=== PATIENT | female | born 1940 | race Two or more races ===

== ENCOUNTER 2018-06-14 11:10 | Outpatient (CLI) | payer MEDICARE, OTHER ==
[~2018-06-14] VITALS: Ht 170.2 cm; Wt 85.3 kg
[~2018-06-14 11:10] MED LIST: ALIGN4 M1 PO; AMLODIPINE BESYL5 MG ORAL; ASPIRIN81 MG ORAL; BYSTOLIC2.5 MG ORAL; ELIQUIS2.5 MG PO; LEXAPRO20 MG ORAL; MULTAQ400 MG ORAL; REPATHA SY140 MG/1 M SQ; TOPROL XL25 MG ORAL
[2018-06-14] MEDS ORDERED: AMLODIPINE BES2.5 MG ORAL (12:29)
[2018-06-14 12:56] VITALS: BP 137/64
--- NOTE | 2018-06-22 14:44 | GI Progress Note ---
Assessment/Plan Problems: (1) Gastric spindle cell tumor (2) IBS (irritable bowel syndrome) ICD Codes: K59.9 - IBS (irritable bowel syndrome) SNOMED: 61963218 (3) A-fib ICD Codes: I48.91 - Unspecified atrial fibrillation SNOMED: 17117343 (4) HTN (hypertension) ICD Codes: I10 - HTN (hypertension) SNOMED: 41308734 (5) Anxiety ICD Codes: F41.9 - Anxiety; F48.9 - Nonpsychotic mental disorder, unspecified SNOMED: 79788741 Status: stable Status Narrative Seen with Dr. Simmons. Assessment/Plan 2015 incomplete colonoscopy up to splenic flexure. patient scheduled for colonoscopy on 06/27/18 @ [facility]. - CLD & (Nulytely/Suprep/Movi-Prep) prep instructions given and acknowledged by patient. - NPO @ ID day prior procedure explained. fu labs from PCP The patient was seen and examined at bedside and all new and available data was reviewed in the patients chart. I agree with the above findings, impression and plan. (Patient seen earlier today. Signature stamp does not reflect patient encounter time.). - Karthik Simmons MD Note this is a late entry. Subjective Gastrointestinal/Abdominal: Reports: no symptoms Objective 97.4 BP 137/64 P 59 (irregular HR) 96 RA WT 188 General Appearance: WD/WN, no apparent distress, alert Cardiovascular: normal rate Respiratory/Chest: normal breath sounds, no respiratory distress Abdominal Exam: normal bowel sounds, non tender, soft Extremities: normal range of motion, non-tender Henry Cobian [employer]IST Jun 22, 2018 14:44
== END 2018-06-14 11:43 | disposition home or self-care (01) ==
LOC: PAN 11:10
DX: K58.9 Irritable bowel syndrome, unspecified (principal); I48.91 Unspecified atrial fibrillation; I10 Essential (primary) hypertension; F41.9 Anxiety disorder, unspecified; F48.9 Nonpsychotic mental disorder, unspecified; C16.9 Malignant neoplasm of stomach, unspecified
CPT/HCPCS: 99213

== ENCOUNTER 2018-06-27 06:40 | Day surgery (SDC) | payer MEDICARE, OTHER ==
[~2018-06-27] VITALS: Ht 170.2 cm; Wt 83.5 kg
[2018-06-27] VITALS (11 sets, daily range): BP systolic 145–181; BP diastolic 66–91
[~2018-06-27 06:40] MED LIST changes: +AMLODIPINE BES2.5 MG ORAL
[2018-06-27] MEDS ORDERED: LR 1000ml ONE ×2 (06:41→09:42)
[2018-06-27] MEDS ORDERED: Midazolam 2mg/2ml Inj ONE ×2 (06:41→09:42)
[2018-06-27] MEDS ORDERED: fentaNYL 100 mcg/2 mL IV ONE ×2 (06:41→09:42)
[2018-06-27] MEDS ORDERED: Propofol 200mg/20ml IV ONE ×2 (06:41→09:42)
[2018-06-27] MEDS ORDERED: LR 1000ml 1,000 ML IVLG SCH (08:14)
--- NOTE | 2018-06-27 08:14 | Anethesia Preoperative Eval ---
Anesthesia Pre-op PMH/ROS General Date of Evaluation: Jun 27, 2018 Time of Evaluation: 08:10 Anesthesiologist: Kiera ASA Score: ASA 2 Mallampati Score Class I : Soft palate, uvula, fauces, pillars visible Class II: Soft palate, uvula, fauces visible Class III: Soft palate, base of uvula visible Class IV: Only hard plate visible Mallampati Classification: Class II Surgeon: Iris Diagnosis: Abdominal pain Surgical Procedure: EGD Colonoscopy Anesthesia History: none Allergies: Coded Allergies: AMOXICILLIN (Verified Allergy, Mild, 01/06/11) BENZOCAINE (Verified Allergy, Mild, 01/06/11) BUPIVACAINE (Verified Allergy, Mild, 01/06/11) BUTAMBEN (Verified Allergy, Mild, 01/06/11) CHLOROPROCAINE (Verified Allergy, Mild, 01/06/11) COCAINE (Verified Allergy, Mild, 01/06/11) DEXTROSE (Verified Allergy, Mild, 01/06/11) DIBUCAINE (Verified Allergy, Mild, 01/06/11) EPINEPHRINE (Verified Allergy, Mild, 01/06/11) EPINEPHRYL BORATE (Verified Allergy, Mild, 01/06/11) ETHYL CHLORIDE (Verified Allergy, Mild, 01/06/11) LIDOCAINE (Verified Allergy, Mild, 01/06/11) MEPIVACAINE (Verified Allergy, Mild, 01/06/11) PRILOCAINE (Verified Allergy, Mild, 01/06/11) PROPARACAINE (Verified Allergy, Mild, 01/06/11) TETRACAINE (Verified Allergy, Mild, 01/06/11) VALSARTAN (Verified Allergy, Mild, 01/06/11) PENICILLINS (Verified Allergy, Unknown, 04/29/16) Past Medical History Cardiovascular: Reports: HTN, arrhythmia - h/o A fib; Denies: CAD, [place], valve dz, other Pulmonary: Reports: COPD; Denies: asthma, NYA, other Gastrointestinal/Genitourinary: Denies: GERD, CRI, ESRD, other Neurologic/Psychiatric: Reports: depression/anxiety; Denies: dementia, CVA, TIA, other Endocrine: Reports: hypothyroidism; Denies: DM, steroids, other HEENT: Denies: cataract (L), cataract (R), glaucoma, [place] (L), [place] (R), other Hematology/Immune: Reports: anemia - mild; Denies: DVT, bleeding disorder, other Musculoskeletal/Integumentary: Denies: OA, RA, DJD, DDD, edema, other PMH Narrative: as above PSxH Narrative: Thyroid Anesthesia Pre-op Phys. Exam Physician Exam Last Vital Signs Date Time Temp Pulse Resp B/P (MAP) Pulse Ox O2 Delivery O2 Flow Rate FiO2 06/27/18 07:36 161/86 (111) 06/27/18 07:20 Room Air 06/27/18 07:14 98.3 69 18 98 98.3 Constitutional: NAD Neurologic: CN 2-12 intact Cardiovascular: RRR, no M/R/G Respiratory: CTA Gastrointestinal: S/NT/ND Airway Exam Mallampati Score: Class II MO: full Neck: stiff ROM: limited Teeth: missing Dentures: no upper, no lower Anesthesia Pre-op A/P Labs see chart Studies Pre-op Studies: EKG - NSR Risk Assessment & Plan Assessment: ASA 2 Plan: MAC Status Change Before Surgery: No Pre-Antibiotics Drug: none Dale Qureshi MD Jun 27, 2018 08:14
[2018-06-27] MEDS ORDERED: DiphenhydrAMINE 50mg/ml Inj IVP PRN (08:15)
[2018-06-27] MEDS ORDERED: fentaNYL 100 mcg/2 mL IV PRN (08:15)
--- NOTE | 2018-06-27 09:47 | Short Stay Surgery H&P ---
History of Present Illness History of Present Illness Chief Complaint see recent office note HPI Amalia Phelan is a 77 year old female who was admitted on for Gastric Spindle Cell Tumor Patient History Allergies: Coded Allergies: AMOXICILLIN (Verified Allergy, Mild, 01/06/11) BENZOCAINE (Verified Allergy, Mild, 01/06/11) BUPIVACAINE (Verified Allergy, Mild, 01/06/11) BUTAMBEN (Verified Allergy, Mild, 01/06/11) CHLOROPROCAINE (Verified Allergy, Mild, 01/06/11) COCAINE (Verified Allergy, Mild, 01/06/11) DEXTROSE (Verified Allergy, Mild, 01/06/11) DIBUCAINE (Verified Allergy, Mild, 01/06/11) EPINEPHRINE (Verified Allergy, Mild, 01/06/11) EPINEPHRYL BORATE (Verified Allergy, Mild, 01/06/11) ETHYL CHLORIDE (Verified Allergy, Mild, 01/06/11) LIDOCAINE (Verified Allergy, Mild, 01/06/11) MEPIVACAINE (Verified Allergy, Mild, 01/06/11) PRILOCAINE (Verified Allergy, Mild, 01/06/11) PROPARACAINE (Verified Allergy, Mild, 01/06/11) TETRACAINE (Verified Allergy, Mild, 01/06/11) VALSARTAN (Verified Allergy, Mild, 01/06/11) PENICILLINS (Verified Allergy, Unknown, 04/29/16) Medication History Scheduled Amlodipine Besylate* (Amlodipine Besylate*), 2.5 MG ORAL DAILY, (Reported) Apixaban (Eliquis), 2.5 MG PO BID, (Reported) Escitalopram Oxalate* (Lexapro*), 5 MG ORAL DAILY, (Reported) Nebivolol Hcl* (Bystolic*), 5 MG ORAL DAILY, (Reported) Miscellaneous Medications Evolocumab (Repatha Syringe), 140 MG SQ, (Reported) Discontinued Medications Dronedarone Hydrochloride (Multaq), 400 MG ORAL TWICE A DAY, (Reported) Discontinued Reason: Pt stopped taking med Physical Exam Vital Signs Last Vital Signs Date Time Temp Pulse Resp B/P (MAP) Pulse Ox O2 Delivery O2 Flow Rate FiO2 06/27/18 07:36 161/86 (111) 06/27/18 07:20 Room Air 06/27/18 07:14 98.3 69 18 98 98.3 Plan Attestation Are the patient's medical conditions optimized for surgery? Karthik Simmons MD Jun 27, 2018 09:47
--- NOTE | 2018-06-27 09:47 | Pre-Procedure Note/Attestation ---
Pre-Procedure Note/Attestation Complete Prior to Procedure Planned Procedure: not applicable Procedure Narrative: esophagogastroduodenoscopy and colonoscopy Indications for Procedure Pre-Operative Diagnosis: screening colon, GERD Attestation I attest that I discussed the nature of the procedure; its benefits; risks and complications; and alternatives (and the risks and benefits of such alternatives ), prior to the procedure, with the patient (or the patient's legal payable representative). I attest that, if there was a reasonable possibility of needing a blood transfusion, the patient (or the patient's legal payable representative) was given the [facility] standardized written summary, pursuant to the [place] Blood Safety Act ([place] Health and Safety Code # 1645, as amended). I attest that I re-evaluated the patient just prior to the surgery and that there has been no change in the patient's H&P, except as documented below: Karthik Simmons MD Jun 27, 2018 09:47
--- NOTE | 2018-06-27 10:38 | Immediate Post-Op Evaluation ---
Immediate Post-Op Evalulation Immediate Post-Op Evalulation Procedure: EGD Colonoscopy Date of Evaluation: Jun 27, 2018 Time of Evaluation: 10:37 IV Fluids: 500 Blood Products: none Estimated Blood Loss: none Urinary Output: none Blood Pressure Systolic: 176 Blood Pressure Diastolic: 68 Pulse Rate: 74 Respiratory Rate: 20 O2 Sat by Pulse Oximetry: 99 Temperature (Fahrenheit): 97.7 Pain Score (1-10): 1 Nausea: No Vomiting: No Complications none Patient Status: reacts, patent, none Hydration Status: adequate Dale Qureshi MD Jun 27, 2018 10:38
--- NOTE | 2018-06-27 11:15 | Procedure Note ---
DATE OF PROCEDURE: 06/27/2018 SURGEON: Karthik Simmons M.D. ANESTHESIOLOGIST: Dr. Qureshi. PROCEDURE: Colonoscopy with biopsy and endoscopy with biopsy. ANESTHESIA: Per Dr. Qureshi. INSTRUMENT: Olympus adult flexible upper endoscope and colonoscope. INDICATION: Screening colonoscopy evaluation, abdominal pain, chronic GERD. The procedure, risks, benefits, and possible consequences, including hemorrhage, aspiration, perforation and infection, and alternative treatments, were explained to the patient/legal guardian by Dr. Karthik Simmons and the patient/legal guardian understood and accepted these risks. DESCRIPTION OF PROCEDURE: After informed consent was obtained and the patient was adequately sedated, Olympus upper endoscope was advanced from the mouth to the second portion of the duodenum and retroflexion was performed in the stomach. GE junction was found to be about 40 cm from the incisors. No evidence of any esophagitis. No esophageal mass. In the stomach, there was diffuse gastritis, mildly atrophic. There were also multiple antral erosions. Random biopsy from the antrum and body was obtained to rule out H. pylori infection. The rest of the upper endoscopic examination grossly looked within normal limits. At this time, the upper endoscope was retrieved. The patient was turned over for colonoscopy. First, rectal exam was performed which showed positive for external hemorrhoids. Then, the scope was advanced from rectum into the cecum documented by appendiceal orifice, ileocecal valve, and right upper quadrant palpation. Quality of prep was very good. The patient had very tortuous and difficult colonoscopy examination. She had one diminutive polyp in the transverse colon removed with the cold biopsy forceps technique. Retroflexion of rectum showed no obvious large internal hemorrhoids. SUMMARY OF FINDINGS: 1. Gastritis, status post biopsy. 2. Antral erosions. 3. One colonic polyp removed, see above for details. 4. Very tortuous colon. 5. External hemorrhoids. RECOMMENDATIONS: Follow up biopsy results and treat accordingly. Karthik Simmons M.D. DR: Sera JOB#: [id number] CC:
--- NOTE | 2018-06-27 11:28 | Endoscopy Procedure Note ---
Endoscopy Procedure Note General Indication for Procedure: screening, chronic GERD Procedures Performed: EGD, colonoscopy Operative Findings/Diagnosis: one polyp, gastritis Specimen: yes Pt Tolerated Procedure Well: Yes Estimated Blood Loss: none Anesthesia Anesthesiologist: daniel Anesthesia: MAC Inserted Devices Implant(s) used?: No Quality Quality of Bowel Preparation: Excellent Did scope reach the cecum?: Yes Was there any complications?: No GI Core Measures 50 yrs or older w/o bx or poly: No 10yrs. F/U not recommended: Yes If not recommended, why?: Above average risk 10 yrs. F/U needed: Yes 18 years or older w/prev. colo: No Karthik Simmons MD Jun 27, 2018 11:28
--- NOTE | 2018-06-27 11:53 | 48 Hour Post Anesthesia Eval ---
Post Anesthesia Evaluation Procedure: EGD Colonoscopy Date of Evaluation: Jun 27, 2018 Time of Evaluation: 11:51 Blood Pressure Systolic: 162 0: 74 Pulse Rate: 64 Respiratory Rate: 20 Temperature (Fahrenheit): 97.6 O2 Sat by Pulse Oximetry: 98 Airway: patent Nausea: No Vomiting: No Pain Intensity: 1 Hydration Status: adequate Cardiopulmonary Status: stable Mental Status/LOC: patient returned to baseline Follow-up Care/Observations: n/a Post-Anesthesia Complications: none Follow-up care needed: ready to discharge Dale Qureshi MD Jun 27, 2018 11:53
== END 2018-06-27 11:35 | disposition home or self-care (01) ==
LOC: GAS 06:40
DX: Z12.11 Encounter for screening for malignant neoplasm of colon (principal); K63.5 Polyp of colon; K64.4 Residual hemorrhoidal skin tags; K29.40 Chronic atrophic gastritis without bleeding; K31.9 Disease of stomach and duodenum, unspecified; I10 Essential (primary) hypertension; I48.91 Unspecified atrial fibrillation; J44.9 Chronic obstructive pulmonary disease, unspecified; F32.9 Major depressive disorder, single episode, unspecified; F41.9 Anxiety disorder, unspecified; E03.9 Hypothyroidism, unspecified; D64.9 Anemia, unspecified; E07.9 Disorder of thyroid, unspecified; Z88.0 Allergy status to penicillin; Z88.8 Allergy status to other drugs, medicaments and biological substances
CPT/HCPCS: 43239; 45380; 93005; J2250; J2704; J3010; J7120; 94003; 94150